=== PATIENT | male | born 1950 | race Caucasian/White ===

== ENCOUNTER → 2018-11-24 | Outpatient (CLI) | payer MEDICARE, OTHER ==
[2018-11-24 14:26] LABS: BASOPHILS # (AUTO) 0.07 x10^3/uL (0-0.1); BASOPHILS % (AUTO) 1 % (0-1); EOSINOPHILS # (AUTO) 0.17 x10^3/uL (0-0.4); EOSINOPHILS % (AUTO) 3 % (1-7); LYMPHOCYTES # (AUTO) 1.32 x10^3/uL (1-3.4); LYMPHOCYTES % (AUTO) 20 % (22-44); MD NO; MEAN CORPUSCULAR HEMOGLOBIN 29.3 pg (27.5-34.5); MEAN CORPUSCULAR HGB CONC 33.2 g/dL (33.2-36.2); MEAN PLATELET VOLUME 8.1 fL (7.4-10.4); MONOCYTES # (AUTO) 0.75 x10^3/uL (0.2-0.8); MONOCYTES % (AUTO) 12 % (2-9); NEUTROPHILS # (AUTO) 4.19 x10^3/uL (1.8-6.8); NEUTROPHILS % (AUTO) 65 % (42-75); PLATELET COUNT 233 x10^3/uL (130-400); RED BLOOD COUNT 5.39 x10^6/uL (4.38-5.82); RED CELL DISTRIBUTION WIDTH 14.7 % (9.4-14.8)
[2018-11-24 14:27] LABS: MICROSCOPIC NOT IND
[2018-11-24 14:37] LABS: ALANINE AMINOTRANSFERASE 56 U/L (12-78); ANION GAP 7 mmol/L (5-15); CALCIUM 8.9 mg/dL (8.5-10.1); CHLORIDE 110 mmol/L (98-107)
[2018-11-24 14:39] LABS: ALKALINE PHOSPHATASE 98 U/L (45-117); BILIRUBIN,TOTAL 0.4 mg/dL (0.2-1.0)
== END | disposition home or self-care (01) ==
LOC: STAR 13:11
PROVIDERS: ATTEND Urology
DX: Z01.818 Encounter for other preprocedural examination (principal); C61 Malignant neoplasm of prostate
CPT/HCPCS: 36415; 80053; 81003; 85025; 87086; 93005

== ENCOUNTER 2018-12-08 08:12 | Inpatient (IN) | payer MEDICARE, OTHER ==
[~2018-12-08] VITALS: Ht 170.2 cm; Wt 95.4 kg
[~2018-12-08 08:12] MED LIST: LEVO200T PO
[2018-12-08] MEDS ORDERED: METOPROLOL 1 MG/ML, 5ML IV PRN (08:30)
[2018-12-08] MEDS ORDERED: hydrALAzine 20 MG/ML, 1ML IV PRN (08:30)
[2018-12-08] MEDS ORDERED: OXYcodone 5 MG/5 ML ORAL.SOL UDC PO PRN (08:30)
[2018-12-08] MEDS ORDERED: MEPERIDINE/PF 25MG/0.5ML IVPush PRN (08:30)
[2018-12-08] MEDS ORDERED: HALOPERIDOL 5 MG/ML IV PRN ×2 (08:30)
[2018-12-08] MEDS ORDERED: PROCHLORPERAZINE 5 MG/ML, 2ML IV PRN (08:30)
[2018-12-08] MEDS ORDERED: PROMETHAZINE 25 MG/ML, 1ML IV PRN (08:30)
[2018-12-08] MEDS ORDERED: LABETALOL 5MG/ML, 20ML IV PRN (08:30)
[2018-12-08] MEDS ORDERED: DIPHENHYDRAMINE 50 MG/ML, 1ML IVPush PRN (08:30)
[2018-12-08] MEDS ORDERED: FENTANYL PF 100 MCG/2ML IV PRN (08:30)
[2018-12-08] MEDS ORDERED: HYDROmorphone 2 MG/ML, 1ML IVPush PRN (08:30)
[2018-12-08] MEDS ORDERED: LACTATED RINGERS 1,000 ML IV SCH (08:40)
[2018-12-08 09:02] VITALS: BP 148/91
[2018-12-08] MEDS ORDERED: DIAZ2TAB3 PO (09:07)
[2018-12-08] MEDS ORDERED: GABAPENTIN 300 MG CAPSULE PO ONE (09:30)
[2018-12-08] MEDS ORDERED: ACETAMINOPHEN 500 MG TABLET PO ONE (09:30)
[2018-12-08] MEDS ORDERED: MIDAZOLAM 1 MG/ML, 2ML ONE (10:04)
[2018-12-08] MEDS ORDERED: FENTANYL PF 250 MCG/5ML ONE (10:04)
[2018-12-08] MEDS ORDERED: BUPIVACAINE/PF 0.25% ONE (10:57)
[2018-12-08] MEDS ORDERED: EPINEPHRINE 1 MG/ML, 1ML ONE (10:58)
[2018-12-08] MEDS ORDERED: DEXAMETHASONE 4 MG/ML, 1ML ONE (11:20)
[2018-12-08] MEDS ORDERED: PROPOFOL 10 MG/ML, 20ML ONE (11:20)
[2018-12-08] MEDS ORDERED: SUCCINYLCHOLINE 20 MG/ML, 10ML ONE (11:20)
[2018-12-08] MEDS ORDERED: CEFAZOLIN 1,000 MG ONE (11:20)
[2018-12-08] MEDS ORDERED: GLYCOPYRROLATE 0.2MG/1ML, 5ML ONE (11:20)
[2018-12-08] MEDS ORDERED: NEOSTIGMINE 1 MG/ML, 10ML ONE (11:20)
[2018-12-08] MEDS ORDERED: ONDANSETRON 2MG/ML, 2ML ONE (11:20)
[2018-12-08] MEDS ORDERED: ROCURONIUM 10 MG/ML,10ML ONE (11:20)
[2018-12-08] MEDS ORDERED: EPHEDRINE 50 MG/ML, 1ML ONE (11:20)
[2018-12-08] MEDS ORDERED: THROMBIN 20,000 UNIT VIAL TP ONE (12:46)
[2018-12-08] MEDS ORDERED: MICROFIBRILLAR COLLAGEN 1 GM TP ONE (12:46)
[2018-12-08] MEDS ORDERED: OXYcodone 5 MG/5 ML ORAL.SOL UDC ONE (17:10)
[2018-12-08] MEDS ORDERED: hydrALAzine 20 MG/ML, 1ML ONE (17:51)
[2018-12-08] MEDS ORDERED: morphine SULFATE 10 MG/ML, 1ML IV PRN (19:00)
[2018-12-08] MEDS ORDERED: TEMAZEPAM 15 MG CAPSULE PO PRN (19:00)
[2018-12-08] MEDS ORDERED: ONDANSETRON 2MG/ML, 2ML IV PRN (19:00)
[2018-12-08] MEDS ORDERED: DIAZEPAM 2 MG TABLET PO PRN (19:30)
[2018-12-08] MEDS: CEFAZOLIN PMX 1GM/50ML 50 ML IVPB SCH (19:58)
[2018-12-08] MEDS: HYDROcodone/APAP 5/325 TABLET PO PRN (19:58)
[2018-12-08] MEDS: D5%-0.45NACL+KCL 20MEQ 1,000 ML IV SCH (19:59)
[2018-12-08 20:31] VITALS: BP 114/74
[2018-12-09 00:22] VITALS: BP 100/65
[2018-12-09] MEDS: D5%-0.45NACL+KCL 20MEQ 1,000 ML IV SCH ×3 (03:59→20:44)
[2018-12-09] MEDS: CEFAZOLIN PMX 1GM/50ML 50 ML IVPB SCH (04:00)
[2018-12-09 04:23] VITALS: BP 110/66
[2018-12-09 05:21] LABS: ANION GAP 7 mmol/L (5-15); CALCIUM 7.5 mg/dL (8.5-10.1); CHLORIDE 109 mmol/L (98-107); CREATININE 0.95 mg/dL (0.7-1.3)
[2018-12-09] MEDS: LEVOTHYROXINE 200 MCG TABLET PO SCH (06:15)
[2018-12-09] MEDS: ENOXAPARIN 40 MG/0.4 ML SQ SCH (06:15)
[2018-12-09] MEDS: HYDROcodone/APAP 5/325 TABLET PO PRN ×3 (07:58→18:49)
[2018-12-09 08:44] VITALS: BP 106/67
[2018-12-09 13:19] VITALS: BP 92/59
[2018-12-09 20:25] VITALS: BP 102/60
[2018-12-10 01:39] VITALS: BP 114/74
[2018-12-10] MEDS: D5%-0.45NACL+KCL 20MEQ 1,000 ML IV SCH ×3 (04:53→20:57)
[2018-12-10 06:01] LABS: BASOPHILS # (AUTO) 0.05 x10^3/uL (0-0.1); BASOPHILS % (AUTO) 1 % (0-1); EOSINOPHILS % (AUTO) 3 % (1-7); LYMPHOCYTES % (AUTO) 17 % (22-44); MD NO; MEAN CORPUSCULAR HEMOGLOBIN 28.9 pg (27.5-34.5); MEAN CORPUSCULAR HGB CONC 32.1 g/dL (33.2-36.2); MEAN PLATELET VOLUME 8.3 fL (7.4-10.4); MONOCYTES # (AUTO) 0.78 x10^3/uL (0.2-0.8); MONOCYTES % (AUTO) 11 % (2-9); NEUTROPHILS # (AUTO) 4.99 x10^3/uL (1.8-6.8); NEUTROPHILS % (AUTO) 69 % (42-75); PLATELET COUNT 172 x10^3/uL (130-400); RED BLOOD COUNT 4.16 x10^6/uL (4.38-5.82); RED CELL DISTRIBUTION WIDTH 14.6 % (9.4-14.8)
[2018-12-10 06:02] LABS: CALCIUM 8.2 mg/dL (8.5-10.1); CHLORIDE 113 mmol/L (98-107)
[2018-12-10 06:08] LABS: ALANINE AMINOTRANSFERASE 28 U/L (12-78); ALBUMIN 2.7 g/dL (3.4-5.0); ALKALINE PHOSPHATASE 62 U/L (45-117); ANION GAP 3 mmol/L (5-15); BILIRUBIN,TOTAL 0.7 mg/dL (0.2-1.0); CREATININE 0.96 mg/dL (0.7-1.3)
[2018-12-10] MEDS: LEVOTHYROXINE 200 MCG TABLET PO SCH (06:28)
[2018-12-10] MEDS: ENOXAPARIN 40 MG/0.4 ML SQ SCH (06:28)
[2018-12-10 06:37] VITALS: BP 124/76
[2018-12-10] MEDS: HYDROcodone/APAP 5/325 TABLET PO PRN ×2 (11:29→17:22)
[2018-12-10 14:00] VITALS: BP 132/78
[2018-12-10 20:10] VITALS: BP 153/76
[2018-12-11 01:13] VITALS: BP 100/63
[2018-12-11] MEDS: D5%-0.45NACL+KCL 20MEQ 1,000 ML IV SCH ×2 (03:32→13:00)
[2018-12-11] MEDS: LEVOTHYROXINE 200 MCG TABLET PO SCH (06:14)
[2018-12-11] MEDS: ENOXAPARIN 40 MG/0.4 ML SQ SCH (06:14)
[2018-12-11 07:45] VITALS: BP 137/86
[2018-12-11] MEDS ORDERED: MAGNESIUM CITRATE 300ML ORAL SOL PO PRN (09:00)
[2018-12-11] MEDS ORDERED: HYDR-3240 PO (11:47)
[2018-12-11 12:46] VITALS: BP 150/87
== END 2018-12-11 13:22 | disposition home or self-care (01) | DRG 707 ==
LOC: OUT 08:12 → 4NOR 18:10 → OUT 18:18 → DCLOUNGE 12-11 13:09
PROVIDERS: ADMIT Urology; ATTEND Urology
PROC: 8E0W4CZ Robotic Assisted Procedure of Trunk Region, Percutaneous Endoscopic Approach (ICD-10-PCS; 2018-12-08)
PROC: 0VT34ZZ Resection of Bilateral Seminal Vesicles, Percutaneous Endoscopic Approach (ICD-10-PCS; 2018-12-08)
PROC: 0VBQ4ZZ Excision of Bilateral Vas Deferens, Percutaneous Endoscopic Approach (ICD-10-PCS; 2018-12-08)
PROC: 0VT04ZZ Resection of Prostate, Percutaneous Endoscopic Approach (ICD-10-PCS; principal; 2018-12-08 10:30)
DX: C61 Malignant neoplasm of prostate (principal); D62 Acute posthemorrhagic anemia; E66.9 Obesity, unspecified; E03.9 Hypothyroidism, unspecified; Z68.32 Body mass index [BMI] 32.0-32.9, adult
CPT/HCPCS: 36415; 80048; 80053; 85014; 85018; 85025; 86850; 86900; 88309; C1729; G0378; J0171; J0690; J1100; J1650; J2250; J2405; J2704; J2710; J3010; J3490; C1760; J0330; J3480; J7120

== ENCOUNTER 2018-12-15 13:14 | Outpatient (CLI) | payer OTHER ==
[~2018-12-15 13:14] MED LIST changes: +DIAZ2TAB3 PO; +HYDR-3240 PO
== END 2018-12-15 23:59 | disposition home or self-care (01) ==
LOC: RAD 13:14
PROVIDERS: ATTEND Urology
DX: C61 Malignant neoplasm of prostate (principal)
CPT/HCPCS: 51600; 74430; Q9958

== ENCOUNTER 2019-06-17 10:49 | Emergency (ER) | payer MEDICARE, OTHER ==
[~2019-06-17] VITALS: Ht 167.6 cm; Wt 104.5 kg
[2019-06-17 11:02] VITALS: BP 161/91
--- NOTE | 2019-06-17 11:12 | NUR ---
PT HERE TODAY FOR RIGHT SHOULDER PAIN. PA AT BEDSIDE ASSESSING PT NOW.
--- NOTE | 2019-06-17 11:18 | NUR ---
PT TO RADIOLOGY NOW.
== END 2019-06-17 11:53 | disposition home or self-care (01) ==
LOC: ED 11:49
DX: S46.011A Strain of muscle(s) and tendon(s) of the rotator cuff of right shoulder, initial encounter (principal); X58.XXXA Exposure to other specified factors, initial encounter; Y93.89 Activity, other specified; Y92.89 Other specified places as the place of occurrence of the external cause; Y99.8 Other external cause status
CPT/HCPCS: 99283

== ENCOUNTER 2019-10-28 08:07 | Emergency (ER) | payer MEDICARE, OTHER ==
[~2019-10-28] VITALS: Ht 175.3 cm; Wt 97.0 kg
[2019-10-28] MEDS ORDERED: ACETAMINOPHEN 325 MG TABLET PO ONE (08:30)
[2019-10-28] MEDS ORDERED: ACETAMINOPHEN 325 MG TABLET ONE (08:33)
[2019-10-28 09:01] LABS: BASOPHILS # (AUTO) 0.02 x10^3/uL (0-0.1); BASOPHILS % (AUTO) 0 % (0-1); EOSINOPHILS # (AUTO) 0.06 x10^3/uL (0-0.4); EOSINOPHILS % (AUTO) 1 % (1-7); LYMPHOCYTES # (AUTO) 0.75 x10^3/uL (1-3.4); LYMPHOCYTES % (AUTO) 12 % (22-44); MD NO; MEAN CORPUSCULAR HEMOGLOBIN 30.5 pg (27.5-34.5); MEAN CORPUSCULAR HGB CONC 33.2 g/dL (33.2-36.2); MEAN CORPUSCULAR VOLUME 91.8 fL (81-97); MEAN PLATELET VOLUME 7.7 fL (7.4-10.4); MONOCYTES # (AUTO) 0.92 x10^3/uL (0.2-0.8); MONOCYTES % (AUTO) 15 % (2-9); NEUTROPHILS % (AUTO) 72 % (42-75); PLATELET COUNT 176 x10^3/uL (130-400); RED CELL DISTRIBUTION WIDTH 14.7 % (9.4-14.8)
[2019-10-28 09:10] LABS: ALBUMIN 3.5 g/dL (3.4-5.0); ANION GAP 6 mmol/L (5-15); CALCIUM 8.3 mg/dL (8.5-10.1); CHLORIDE 109 mmol/L (98-107); CREATININE 1.11 mg/dL (0.7-1.3)
[2019-10-28 09:42] VITALS: BP 139/74
== END 2019-10-28 10:10 | disposition home or self-care (01) ==
LOC: ED 08:18
DX: B34.9 Viral infection, unspecified (principal); E03.9 Hypothyroidism, unspecified; Z85.46 Personal history of malignant neoplasm of prostate
CPT/HCPCS: 36415; 71045; 80048; 82040; 85025; 99282; 99284